=== PATIENT | male | born 1980 | race Caucasian/White ===

== ENCOUNTER 2022-11-30 18:15 | Inpatient (IN) | payer OTHER ==
[2022-11-30 18:51] VITALS: BMI 34.4
[2022-11-30] MEDS ORDERED: IBUPROFEN 400 MG TABLET (FP) PO PRN (20:05)
[2022-11-30] MEDS ORDERED: DICYCLOMINE HCL 10 MG CAPSULE PO PRN (20:05)
[2022-11-30] MEDS ORDERED: ACETAMINOPHEN 325 MG TABLET (FP) PO PRN (20:05)
[2022-11-30] MEDS ORDERED: LOPERAMIDE HCL 2 MG CAPSULE PO PRN (20:05)
[2022-11-30] MEDS ORDERED: BISMUTH SUBSALICYLATE 524 MG/30 ML PO PRN (20:05)
[2022-11-30] MEDS ORDERED: BENZONATATE 200 MG CAPSULE PO PRN (20:05)
[2022-11-30] MEDS ORDERED: BENZOCAINE/MENTHOL (CHLORASEPTIC ) LOZENGE MM PRN (20:05)
[2022-11-30] MEDS ORDERED: MAG HYDROX/AL HYDROX/SIMETH 30 ML UNIT-DOSE CUP PO PRN (20:05)
[2022-11-30] MEDS ORDERED: ONDANSETRON *ODT* 4 MG TABLET SL PRN (20:05)
[2022-11-30] MEDS ORDERED: guaiFENesin 600 MG TABLET.ER (FP) PO PRN (20:05)
[2022-11-30] MEDS ORDERED: POLYETHYLENE GLYCOL (HEALTHYLAX) 3350 17 GM PACKET PO PRN (20:05)
[2022-11-30] MEDS ORDERED: MAGNESIUM HYDROX 2400MG/30ML ORAL SUSPENSION 30 ML CUP PO PRN (20:05)
[2022-11-30] MEDS ORDERED: NALOXONE HCL 0.4 MG/ML VIAL IM PRN (20:05)
[2022-11-30] MEDS ORDERED: NICOTINE POLACRILEX 2 MG GUM BUC PRN (20:05)
[2022-11-30] MEDS ORDERED: NALOXONE HCL (KLOXXADO) 8 MG SPRAY NS PRN (20:05)
[2022-11-30] MEDS: MELATONIN 5 MG TABLETS PO SCH (22:20)
[2022-11-30] MEDS: METHOCARBAMOL 500 MG TABLET PO PRN (22:20)
[2022-11-30] MEDS: THIAMINE HCL 100 MG TABLET (FP) PO SCH (22:20)
[2022-11-30] MEDS: IBUPROFEN 600 MG TABLET (FP) PO PRN (22:20)
[2022-11-30] MEDS: diazePAM 5 MG TABLET PO SCH (22:21)
[2022-12-01] MEDS ORDERED: ALBUTEROL SO4 HFA INHALER IH PRN ×2 (05:01→11:15)
[2022-12-01] MEDS: diazePAM 5 MG TABLET PO SCH ×4 (05:20→22:15)
[2022-12-01] MEDS: NICOTINE 21 MG/24 HOURS TOPICAL PATCH TD SCH (10:15)
[2022-12-01] MEDS: PRENATAL VITAMINS W/ FOLIC ACID TABLET (FP) PO SCH (10:15)
[2022-12-01] MEDS: METHOCARBAMOL 500 MG TABLET PO PRN ×2 (10:16→22:16)
[2022-12-01 10:55] LABS: HEMATOCRIT 36.7 % (35.4-49); HEMOGLOBIN 13.5 GM/dL (11.7-16.9); MCHC 36.9 g/dl (32.0-35.9); MEAN CELL VOLUME 83.9 fl (80-96); MEAN PLT VOLUME 8.3 fl (7.5-11.1); PLATELET COUNT 290 10^3/uL (134-434); RBC 4.37 M/mm3 (4.00-5.60); WHITE BLOOD COUNT 4.7 K/mm3 (4.0-10.0)
[2022-12-01 11:40] LABS: ALBUMIN 3.9 g/dl (3.4-5.0); BLOOD UREA NITROGEN 13.5 mg/dL (7-18); CALCIUM 9.2 mg/dL (8.5-10.1)
[2022-12-01 11:43] LABS: CREATININE 0.7 mg/dL (0.55-1.3)
[2022-12-01 11:45] LABS: BILIRUBIN,TOTAL 0.9 mg/dL (0.2-1); TOT PROT 7.2 g/dl (6.4-8.2)
[2022-12-01] MEDS: BUPRENORPHINE/NALOXONE 12 MG-3 MG SL FILM PACKET SL SCH ×2 (12:02→22:16)
[2022-12-01] MEDS ORDERED: POTASSIUM CHLORIDE ORAL LIQUID 20 MEQ/15 ML PO ONE (14:25)
[2022-12-01] MEDS: IBUPROFEN 600 MG TABLET (FP) PO PRN (15:01)
[2022-12-01] MEDS: THIAMINE HCL 100 MG TABLET (FP) PO SCH (22:15)
[2022-12-01] MEDS: MELATONIN 5 MG TABLETS PO SCH (22:15)
[2022-12-02] MEDS: diazePAM 5 MG TABLET PO SCH ×3 (05:20→22:07)
[2022-12-02] MEDS: IBUPROFEN 600 MG TABLET (FP) PO PRN (05:21)
[2022-12-02] MEDS: METHOCARBAMOL 500 MG TABLET PO PRN ×2 (05:22→22:09)
[2022-12-02] MEDS: BUPRENORPHINE/NALOXONE 12 MG-3 MG SL FILM PACKET SL SCH ×2 (10:23→17:32)
[2022-12-02] MEDS: PRENATAL VITAMINS W/ FOLIC ACID TABLET (FP) PO SCH (10:23)
[2022-12-02] MEDS: NICOTINE 21 MG/24 HOURS TOPICAL PATCH TD SCH (10:24)
[2022-12-02] MEDS: diazePAM 5 MG TABLET PO PRN ×2 (10:24→17:32)
[2022-12-02] MEDS: FLUoxetine HCL 20 MG CAPSULE PO SCH (10:41)
[2022-12-02] MEDS: GABAPENTIN 400 MG CAPSULE PO SCH ×2 (14:05→22:07)
[2022-12-02] MEDS ORDERED: traZODone HCL 100 MG TABLET (FP) PO SCH (22:00)
[2022-12-02] MEDS: THIAMINE HCL 100 MG TABLET (FP) PO SCH (22:07)
[2022-12-03] MEDS: IBUPROFEN 600 MG TABLET (FP) PO PRN (05:36)
[2022-12-03] MEDS: GABAPENTIN 400 MG CAPSULE PO SCH (05:36)
[2022-12-03] MEDS: BUPRENORPHINE/NALOXONE 12 MG-3 MG SL FILM PACKET SL SCH (05:36)
[2022-12-03] MEDS: METHOCARBAMOL 500 MG TABLET PO PRN (05:36)
[2022-12-03] MEDS ORDERED: diazePAM 5 MG TABLET PO SCH (06:00)
[2022-12-03] MEDS: NICOTINE 21 MG/24 HOURS TOPICAL PATCH TD SCH (09:35)
[2022-12-03] MEDS: PRENATAL VITAMINS W/ FOLIC ACID TABLET (FP) PO SCH (09:35)
[2022-12-03] MEDS: FLUoxetine HCL 20 MG CAPSULE PO SCH (09:36)
[2022-12-03 10:04] VITALS: BP 157/98; PULSE 103; RESP 16; TEMP 97.7
[2022-12-04] MEDS ORDERED: diazePAM 5 MG TABLET PO ONE (06:00)
== END 2022-12-03 09:25 | disposition home or self-care (01) | DRG 773 ==
LOC: YASAS 18:15 → Y3N 20:30
PROVIDERS: ADMIT Allergy & Immunology; ATTEND Surgery
PROC: HZ2ZZZZ Detoxification Services for Substance Abuse Treatment (ICD-10-PCS; principal; 2022-11-30)
DX: F13.230 Sedative, hypnotic or anxiolytic dependence with withdrawal, uncomplicated (principal); F11.20 Opioid dependence, uncomplicated; F14.20 Cocaine dependence, uncomplicated; F12.20 Cannabis dependence, uncomplicated; F17.210 Nicotine dependence, cigarettes, uncomplicated; F19.282 Other psychoactive substance dependence with psychoactive substance-induced sleep disorder; F41.9 Anxiety disorder, unspecified; F32.A Depression, unspecified; G62.9 Polyneuropathy, unspecified; M14.60 Charcot's joint, unspecified site; Z88.2 Allergy status to sulfonamides; Z88.1 Allergy status to other antibiotic agents; Z88.0 Allergy status to penicillin; Z59.01 Sheltered homelessness
CPT/HCPCS: 36415; 80053; 84132; 85027; 86780; 87811; 93005; 93010; C9803-CS; U0003; U0005

== ENCOUNTER 2024-09-29 18:03 | Inpatient (IN) | payer OTHER ==
[2024-09-29] MEDS ORDERED: METOPROLOL TARTRATE 25 MG TABLET (FP) ONE (18:38)
[2024-09-29] MEDS ORDERED: LORazepam 2 MG/ML SDV VIAL ONE (18:38)
[2024-09-29] MEDS ORDERED: levETIRAcetam 500 MG TABLET (FP) PO ONE (18:38)
[2024-09-29 18:39] VITALS: BMI 28.7
[2024-09-29] MEDS: LORazepam 2 MG/ML SDV VIAL IM ONE (18:49)
[2024-09-29] MEDS: levETIRAcetam 500 MG TABLET (FP) PO ONE (18:49)
[2024-09-29] MEDS ORDERED: POLYETHYLENE GLYCOL (HEALTHYLAX) 3350 17 GM PACKET PO PRN (18:50)
[2024-09-29] MEDS ORDERED: guaiFENesin 600 MG TABLET.ER (FP) PO PRN (18:50)
[2024-09-29] MEDS ORDERED: NALOXONE (NARCAN) HCL 4 MG/0.1 ML SPRAY NS PRN (18:50)
[2024-09-29] MEDS ORDERED: BISMUTH SUBSALICYLATE 524 MG/30 ML PO PRN (18:50)
[2024-09-29] MEDS ORDERED: IBUPROFEN 400 MG TABLET (FP) PO PRN (18:50)
[2024-09-29] MEDS ORDERED: BENZOCAINE/MENTHOL (CHLORASEPTIC ) LOZENGE MM PRN (18:50)
[2024-09-29] MEDS ORDERED: ONDANSETRON *ODT* 4 MG TABLET SL PRN (18:50)
[2024-09-29] MEDS ORDERED: BENZONATATE 200 MG CAPSULE PO PRN (18:50)
[2024-09-29] MEDS ORDERED: NICOTINE POLACRILEX 2 MG GUM BUC PRN (18:50)
[2024-09-29] MEDS ORDERED: MAGNESIUM HYDROX 2400MG/30ML ORAL SUSPENSION 30 ML CUP PO PRN (18:50)
[2024-09-29] MEDS ORDERED: DICYCLOMINE HCL 10 MG CAPSULE PO PRN (18:50)
[2024-09-29] MEDS: METOPROLOL TARTRATE 25 MG TABLET (FP) PO ONE (18:50)
[2024-09-29] MEDS ORDERED: MAG HYDROX/AL HYDROX/SIMETH 30 ML UNIT-DOSE CUP PO PRN (18:50)
[2024-09-29] MEDS ORDERED: chlordiazePOXIDE HCL 25 MG CAPSULE ONE ×2 (19:17→22:14)
[2024-09-29] MEDS ORDERED: ALBUTEROL SO4 HFA INHALER IH PRN (19:18)
[2024-09-29] MEDS: chlordiazePOXIDE HCL 25 MG CAPSULE PO ONE (19:19)
[2024-09-29] MEDS ORDERED: hydrOXYzine PAMOATE 25 MG CAPSULE (FP) PO ONE (19:48)
[2024-09-29] MEDS: hydrOXYzine PAMOATE 25 MG CAPSULE (FP) PO PRN (20:09)
[2024-09-29] MEDS ORDERED: MELATONIN 5 MG TABLETS ONE (22:14)
[2024-09-29] MEDS: THIAMINE 100 MG TABLET PO SCH (23:43)
[2024-09-29] MEDS: levETIRAcetam 500 MG TABLET (FP) PO SCH (23:44)
[2024-09-29] MEDS: MELATONIN 5 MG TABLETS PO SCH (23:44)
[2024-09-29] MEDS: chlordiazePOXIDE HCL 25 MG CAPSULE PO SCH (23:45)
[2024-09-30] MEDS ORDERED: chlordiazePOXIDE HCL 25 MG CAPSULE ONE (05:40)
[2024-09-30] MEDS ORDERED: ACETAMINOPHEN 325 MG TABLET (FP) ONE (05:51)
[2024-09-30] MEDS ORDERED: hydrOXYzine PAMOATE 25 MG CAPSULE (FP) PO ONE (05:51)
[2024-09-30] MEDS: ACETAMINOPHEN 325 MG TABLET (FP) PO PRN (05:52)
[2024-09-30] MEDS: PRENATAL VITAMINS W/ FOLIC ACID TABLET (FP) PO SCH (10:44)
[2024-09-30] MEDS: BUPRENORPHINE/NALOXONE 12 MG-3 MG SL FILM PACKET SL SCH (10:46)
[2024-09-30] MEDS: METHOCARBAMOL 500 MG TABLET PO PRN (12:16)
[2024-09-30] MEDS: NICOTINE POLACRILEX 2 MG LOZENGE BC PRN (12:17)
[2024-09-30] MEDS: NICOTINE 21 MG/24 HOURS TOPICAL PATCH TD SCH (14:01)
[2024-09-30] MEDS: chlordiazePOXIDE HCL 25 MG CAPSULE PO PRN (14:03)
[2024-09-30] MEDS: traZODone HCL 50 MG TABLET (FP) PO SCH (22:21)
[2024-10-01] MEDS: chlordiazePOXIDE HCL 25 MG CAPSULE PO SCH (05:17)
[2024-10-01] MEDS: IBUPROFEN 600 MG TABLET (FP) PO PRN (05:20)
[2024-10-01] MEDS: FLUoxetine HCL 20 MG CAPSULE PO SCH (09:16)
[2024-10-02] MEDS ORDERED: chlordiazePOXIDE HCL 10 MG CAPSULE PO PRN
[2024-10-02] MEDS: chlordiazePOXIDE HCL 10 MG CAPSULE PO SCH (05:47)
[2024-10-03] MEDS: chlordiazePOXIDE HCL 10 MG CAPSULE PO SCH (05:37)
[2024-10-03] MEDS: ACAMPROSATE CALCIUM 333 MG TABLET.DR PO SCH (13:50)
[2024-10-03] MEDS: LOPERAMIDE HCL 2 MG CAPSULE PO PRN (13:53)
[2024-10-03] MEDS ORDERED: DEXAMETHASONE SOD PHOSPHATE 4 MG/1 ML VIAL ONE (14:25)
[2024-10-04] MEDS: chlordiazePOXIDE HCL 10 MG CAPSULE PO ONE (05:55)
[2024-10-04] MEDS: LACTULOSE 20 GM/30 ML UDC (FOR ORAL USE ONLY) PO SCH (09:08)
[2024-10-04 09:27] VITALS: BP 142/86; PULSE 109; RESP 18; TEMP 96.9
== END 2024-10-04 09:22 | disposition home or self-care (01) | DRG 773 ==
LOC: YASAS 18:03 → Y6N 09-30 09:26
PROVIDERS: ADMIT Neuromusculoskeletal Medicine & OMM; ATTEND Allergy & Immunology
PROC: HZ2ZZZZ Detoxification Services for Substance Abuse Treatment (ICD-10-PCS; principal; 2024-09-30)
DX: F10.230 Alcohol dependence with withdrawal, uncomplicated (principal); F11.23 Opioid dependence with withdrawal; F17.210 Nicotine dependence, cigarettes, uncomplicated; F19.282 Other psychoactive substance dependence with psychoactive substance-induced sleep disorder; F32.A Depression, unspecified; G62.9 Polyneuropathy, unspecified; J45.20 Mild intermittent asthma, uncomplicated; Z99.89 Dependence on other enabling machines and devices; Z88.8 Allergy status to other drugs, medicaments and biological substances; Z88.0 Allergy status to penicillin
CPT/HCPCS: 80305; 80307; 82140; 93005; 93010